=== PATIENT | female | born 2000 | race Two or more races ===

== ENCOUNTER → 2018-04-13 | Outpatient (CLI) | payer OTHER ==
--- NOTE | 2018-04-13 15:35 | RADIOLOGY REPORT (SQ) ---
EXAM DESCRIPTION: U/S NON-OB PELVIS TV W/O DOP COMPLETED DATE/TIME: 04/13/2018 2:58 pm REASON FOR STUDY: N83.201 UNSPECIFIED OVARIAN CYST, RIGHT SIDE N83.201 UNSPECIFIED OVARIAN CYST, RI GHT SIDE COMPARISON: None. TECHNIQUE: Dynamic and static grayscale images acquired of the pelvis via transvaginal approach and recorded on PACS. Additional selected color Doppler and spectral images recorded. LIMITATIONS: None. FINDINGS: UTERUS: Contour normal. No mass. ENDOMETRIAL STRIPE: No focal or generalized thickening. No masses. CERVIX: Nabothian cysts. RIGHT OVARY AND DOPPLER: Normal size and normal vascular flow. 2 cm thick-walled cyst. LEFT OVARY AND DOPPLER: Normal size. No worrisome masses. Normal arterial vascular flow without evide nce for torsion. FREE FLUID: None noted. OTHER: No other significant finding. MEASUREMENTS: UTERUS: 6.6 x 4.1 x 3.0 cm ENDOMETRIAL STRIPE: 8 mm RIGHT OVARY: 2.9 x 2.5 x 2.8 cm LEFT OVARY: 2.5 x 2.0 x 1.8 cm IMPRESSION: 2 cm complex cyst right ovary. TECHNICAL DOCUMENTATION: JOB ID: [id number] [employer]- All Rights Reserved Rev-11/24 Reading location - IP/workstation name: [email or web address]
== END ==
LOC: RAD 15:11
PROVIDERS: ATTEND Physician Assistant
DX: N83.201 Unspecified ovarian cyst, right side (principal)
CPT/HCPCS: 76830

== ENCOUNTER → 2018-04-20 | Outpatient (CLI) | payer OTHER ==
--- NOTE | 2018-04-20 09:38 | WOMENS IMAGING REPORT ---
EXAM DESCRIPTION: U/S BREAST UNILAT LIMITED COMPLETED DATE/TIME: 04/20/2018 9:00 am REASON FOR STUDY: RIGHT BREAST LUMP N63.0; LEFT BREAST LUMP N63.0 N63.0 UNSPECIFIED LUMP IN UNSPECI FIED BREAST COMPARISON: None. TECHNIQUE: Real-time and static grayscale imaging performed of the right and left breast targeted to the area of palpable abnormalities. Selected color Doppler images recorded. LIMITATIONS: None. FINDINGS: On the right side, the upper outer quadrant was evaluated with ultrasound. There is almaz l fibroglandular tissue in the upper outer quadrant right breast without discrete cystic or solid les ions. No worrisome acoustic absorption. No focal findings. On the left side, the upper outer quadrant was evaluated with ultrasound. There is normal fibrogland ular tissue in the upper outer quadrant. 2 well-circumscribed low-density solid nodules are present with well-circumscribed margins and good acoustic through transmission likely benign fibroadenomas. Both of these measure 1.2 cm in greatest diameter. IMPRESSION: Unremarkable right breast ultrasound. 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 Clinical follow-up recommended. BIRAD: 2 Benign findings. RECOMMENDATION: RECOMMENDED FOLLOW-UP: Follow-up as clinically indicated. COMMENT: The [employer] (ACR) has developed recommendations for screening MRI of the breasts in certain patient populations, to be used in conjunction with mammography. Breast MRI s urveillance may be appropriate for women with more than 20% lifetime risk of developing breast cancer as determined by genetic testing, significant family history of the disease, or history of mantle r adiation for Hodgkins Disease. ACR Practice Guidelines 2008. TECHNICAL DOCUMENTATION: JOB ID: [id number] [employer]- All Rights Reserved Reading location - IP/workstation name: [email or web address]
--- NOTE | 2018-04-20 09:38 | WOMENS IMAGING REPORT ---
EXAM DESCRIPTION: U/S BREAST UNILAT LIMITED COMPLETED DATE/TIME: 04/20/2018 9:00 am REASON FOR STUDY: RIGHT BREAST LUMP N63.0; LEFT BREAST LUMP N63.0 N63.0 UNSPECIFIED LUMP IN UNSPECI FIED BREAST COMPARISON: None. TECHNIQUE: Real-time and static grayscale imaging performed of the right and left breast targeted to the area of palpable abnormalities. Selected color Doppler images recorded. LIMITATIONS: None. FINDINGS: On the right side, the upper outer quadrant was evaluated with ultrasound. There is almaz l fibroglandular tissue in the upper outer quadrant right breast without discrete cystic or solid les ions. No worrisome acoustic absorption. No focal findings. On the left side, the upper outer quadrant was evaluated with ultrasound. There is normal fibrogland ular tissue in the upper outer quadrant. 2 well-circumscribed low-density solid nodules are present with well-circumscribed margins and good acoustic through transmission likely benign fibroadenomas. Both of these measure 1.2 cm in greatest diameter. IMPRESSION: Unremarkable right breast ultrasound. 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 Clinical follow-up recommended. BIRAD: 2 Benign findings. RECOMMENDATION: RECOMMENDED FOLLOW-UP: Follow-up as clinically indicated. COMMENT: The [employer] (ACR) has developed recommendations for screening MRI of the breasts in certain patient populations, to be used in conjunction with mammography. Breast MRI s urveillance may be appropriate for women with more than 20% lifetime risk of developing breast cancer as determined by genetic testing, significant family history of the disease, or history of mantle r adiation for Hodgkins Disease. ACR Practice Guidelines 2008. TECHNICAL DOCUMENTATION: JOB ID: [id number] [employer]- All Rights Reserved Reading location - IP/workstation name: [email or web address]
== END ==
LOC: WI 07:37
PROVIDERS: ATTEND Physician Assistant
DX: N63.21 Unspecified lump in the left breast, upper outer quadrant (principal); N63.11 Unspecified lump in the right breast, upper outer quadrant
CPT/HCPCS: 76642

== ENCOUNTER → 2019-04-19 | Outpatient (CLI) | payer OTHER ==
--- NOTE | 2019-04-23 08:25 | WOMENS IMAGING REPORT ---
EXAM DESCRIPTION: U/S BREAST UNILAT LIMITED COMPLETED DATE/TIME: 04/22/2019 1:47 pm REASON FOR STUDY: N64.4 LEFT N64.4 MASTODYNIA COMPARISON: 04/20/2018. TECHNIQUE: Real-time and static grayscale imaging performed of the left breast targeted to the area of clinical/mammographic concern. Selected color Doppler images recorded. LIMITATIONS: None. FINDINGS: MASS: Two solid masses in the 1-2 o'clock location. The larger mass measures 1.0 x 1.3 x 1.8 cm. Smooth circumscribed margins. No distal shadowing. There is a central echogenic structure which is a biopsy clip. The smaller mass measures 6 x 7 mm and appears unchanged. OTHER: No other significant finding. IMPRESSION: Stable solid masses, presumed to be fibroadenomas. No new findings. BIRAD: 2 Benign findings. RECOMMENDATION: RECOMMENDED FOLLOW-UP: Follow-up as clinically indicated. COMMENT: The [employer] (ACR) has developed recommendations for screening MRI of the breasts in certain patient populations, to be used in conjunction with mammography. Breast MRI s urveillance may be appropriate for women with more than 20% lifetime risk of developing breast cancer as determined by genetic testing, significant family history of the disease, or history of mantle r adiation for Hodgkins Disease. ACR Practice Guidelines 2008. TECHNICAL DOCUMENTATION: JOB ID: [id number] [employer]- All Rights Reserved Reading location - IP/workstation name: [email or web address]
--- NOTE | 2019-04-23 08:26 | WOMENS IMAGING REPORT ---
EXAM DESCRIPTION: U/S BREAST UNILAT LIMITED COMPLETED DATE/TIME: 04/22/2019 1:45 pm REASON FOR STUDY: N64.4 MASTODYNIA N64.4 MASTODYNIA COMPARISON: 04/20/2018. TECHNIQUE: Real-time and static grayscale imaging performed of the right breast targeted to the area of clinical/mammographic concern. Selected color Doppler images recorded. LIMITATIONS: None. FINDINGS: MASS: No mass identified. Normal glandular tissue. OTHER: No other significant finding. IMPRESSION: No suspicious findings detected by ultrasound. BIRAD: 1 Negative. RECOMMENDATION: RECOMMENDED FOLLOW-UP: Follow-up as clinically indicated. COMMENT: The [employer] (ACR) has developed recommendations for screening MRI of the breasts in certain patient populations, to be used in conjunction with mammography. Breast MRI s urveillance may be appropriate for women with more than 20% lifetime risk of developing breast cancer as determined by genetic testing, significant family history of the disease, or history of mantle r adiation for Hodgkins Disease. ACR Practice Guidelines 2008. TECHNICAL DOCUMENTATION: JOB ID: [id number] [employer]- All Rights Reserved Reading location - IP/workstation name: [email or web address]
== END ==
LOC: WI 08:55
PROVIDERS: ATTEND Physician Assistant
DX: N64.4 Mastodynia (principal); N63.20 Unspecified lump in the left breast, unspecified quadrant
CPT/HCPCS: 76642